=== PATIENT | female | born 1985 | race Caucasian/White ===

== ENCOUNTER → 2021-09-10 10:22 | Outpatient (CLI) | payer SELFPAY ==
--- NOTE | 2021-09-10 10:38 | US_ITS ---
STUDY: THYROID ULTRASOUND REASON FOR EXAM: Female, 35 years old. NONTOXIC MULTINODULAR GOITER TECHNIQUE: Ultrasound evaluation of the thyroid was performed with real-time and static lion-scale imaging. COMPARISON: None. FINDINGS: RIGHT LOBE: The right lobe of the thyroid gland measures 9.3 x 6.6 x 5.2 cm. There is a heterogeneous echotexture. Multiple nodules with difficult to define borders. LEFT LOBE: The left lobe of the thyroid gland measures 6.8 x 2.2 x 3.3 cm. There is a heterogeneous echotexture. 2.1 x 1.5 x 1.6 cm lower pole solid nodule with regular margins. 1.8 x 1.2 x 0.7 cm cyst. ISTHMUS: The isthmus measures 12 millimeters. 2.8 x 2.9 x 1.7 cm complex cystic and solid nodule with punctate echogenic foci. The regional lymph nodes are normal. US/Thyroid IMPRESSION: 2.9 cm TR4 nodule meets criteria for fine-needle aspiration. Enlarged thyroid with other nodules detailed above. Electronically Signed: Forrest Banuelos MD at 4:40 EST Tel , Service support ,
== END ==
PROVIDERS: PCP Physician Assistant; Visit Provider Physician Assistant
DX: E04.2 Nontoxic multinodular goiter (principal)
CPT/HCPCS: 76536